=== PATIENT | female | born 1960 | race Caucasian/White ===

== ENCOUNTER → 2017-07-09 | Outpatient (CLI) | payer BC ==
[~2017-07-09] MED LIST: AMLO5TAB2 PO; ATEN100T88 PO; CARV25TA PO; LISI1TAB6 PO; SPIR25TA3 PO
--- NOTE | 2017-07-11 07:53 | Diagnostic Imaging Report ---
Bilateral screening mammogram 2D views with tomosynthesis The current study was also evaluated with a Computer Aided Detection (CAD) system. INDICATION: Screening. No current complaints stated on the questionnaire. COMPARISON: 06/19/16 FINDINGS: The breasts are composed of heterogeneously dense parenchyma which may decrease mammographic sensitivity. There is a biopsy clip noted in the upper outer aspect of the right breast. Allowing for technique and positional differences, no suspicious change is seen. IMPRESSION: Dense breasts with no definite change. ACR BI-RADS Category 2: Benign findings. Result letter will be mailed to the patient. Note: At least 10% of breast cancer is not imaged by mammography. Dictated by: Dictated on workstation # [id number]
== END ==
LOC: RAD 09:24
PROVIDERS: ATTEND Family Medicine
DX: Z12.31 Encounter for screening mammogram for malignant neoplasm of breast (principal)
CPT/HCPCS: 77067

== ENCOUNTER → 2018-07-28 | Outpatient (CLI) | payer BC ==
--- NOTE | 2018-07-28 12:37 | Diagnostic Imaging Report ---
INDICATION: Routine screening. COMPARISON: 07/09/2017 and 06/19/2016. TECHNIQUE: 2D and 3D bilateral screening mammography was performed with CAD. FINDINGS: Both breasts are heterogeneously dense, limiting the sensitivity of mammography. A biopsy clip in the upper outer right breast is again noted. No mass or malignant appearing microcalcifications are seen. The axillae are unremarkable. IMPRESSION: No mammographic features suspicious for malignancy are identified. ACR BI-RADS Category 2: Benign findings. Result letter will be mailed to the patient. Note: At least 10% of breast cancer is not imaged by mammography. Dictated by: Dictated on workstation # [id number]
== END ==
LOC: RAD 07:25
PROVIDERS: ATTEND Nurse Practitioner Family
DX: Z12.31 Encounter for screening mammogram for malignant neoplasm of breast (principal)
CPT/HCPCS: 77067

== ENCOUNTER → 2019-02-17 | Outpatient (CLI) | payer BC ==
--- NOTE | 2019-02-17 10:27 | Diagnostic Imaging Report ---
INDICATION: Hypertension. TECHNIQUE: Grayscale, color-flow, and duplex Doppler evaluation of the bilateral kidneys was performed. FINDINGS: The right kidney measures 10.0 x 3.7 x 5.1 cm and the left kidney measures 10.0 x 4.9 x 5.7 cm. The cortical thickness and echogenicity are normal. No calculi are seen. There is no hydronephrosis. The renal arterial evaluation demonstrates normal velocities bilaterally. No velocity elevation is seen. The waveforms are unremarkable. IMPRESSION: Unremarkable renal ultrasound with renal Doppler. No findings to suggest renal artery stenosis are identified. Dictated by: Dictated on workstation # [id number]
== END ==
LOC: RAD 08:16
PROVIDERS: ATTEND Nurse Practitioner Family
DX: I10 Essential (primary) hypertension (principal)
CPT/HCPCS: 76770; 93975

== ENCOUNTER → 2019-08-02 | Outpatient (CLI) | payer BC ==
--- NOTE | 2019-08-02 10:38 | Diagnostic Imaging Report ---
INDICATION: Screening The current study was also evaluated with a Computer Aided Detection (CAD) system. 3-D Tomographic imaging was also performed. Comparison made with prior examination of 07/28/2018, 07/09/2017 and 06/19/2016. FINDINGS: There are scattered fibroglandular densities bilaterally. There are benign type calcifications. There is no dominant mass, spiculated lesion or suspicious calcifications identified. Skin, nipples and axilla are unremarkable. IMPRESSION: Category 2 benign. ACR BI-RADS Category 2: Benign findings. Result letter will be mailed to the patient. Note: At least 10% of breast cancer is not imaged by mammography. Dictated by: Dictated on workstation # [id number]
== END ==
LOC: RAD 08:49
PROVIDERS: ATTEND Nurse Practitioner Family
DX: Z12.31 Encounter for screening mammogram for malignant neoplasm of breast (principal)
CPT/HCPCS: 77067

== ENCOUNTER → 2020-07-12 | Outpatient (CLI) | payer BC ==
--- NOTE | 2020-07-13 09:50 | NUR ---
Notified of Positive COVID test.
== END ==
LOC: LABNPT 08:34
PROVIDERS: ATTEND Family Medicine
DX: U07.1 COVID-19 (principal); J32.9 Chronic sinusitis, unspecified
CPT/HCPCS: 87635

== ENCOUNTER → 2020-08-03 | Outpatient (CLI) | payer BC ==
--- NOTE | 2020-08-03 09:50 | Diagnostic Imaging Report ---
INDICATION: Routine screening. Comparison is made with prior mammogram from 08/02/2019 and 07/28/2018. 2-D and 3-D bilateral screening mammography was performed with CAD. Scattered fibroglandular densities are identified bilaterally. The parenchymal pattern is stable. There are benign calcifications bilaterally. No mass or malignant appearing microcalcifications are seen. Axillae are unremarkable. IMPRESSION: BI-RADS Category 2 No mammographic features suspicious for malignancy are identified. ACR BI-RADS Category 2: Benign findings. Result letter will be mailed to the patient. Note: At least 10% of breast cancer is not imaged by mammography. Dictated by: Dictated on workstation # [id number]
== END ==
LOC: RAD 07:45
PROVIDERS: ATTEND Nurse Practitioner Family
DX: Z12.31 Encounter for screening mammogram for malignant neoplasm of breast (principal)
CPT/HCPCS: 77063; 77067

== ENCOUNTER → 2021-01-29 | Outpatient (CLI) | payer BC ==
[2021-01-29 10:34] LABS: BASOPHILS % (AUTO) 0 % (0-10); EOSINOPHILS # (AUTO) 0.1 10^3/uL (0.0-0.3); EOSINOPHILS % (AUTO) 2 % (0-10); HEMATOCRIT 37 % (35-52); LYMPHOCYTES # (AUTO) 0.8 X 10^3 (1.0-4.0); LYMPHOCYTES % (AUTO) 26 % (12-44); MEAN CORPUSCULAR HEMOGLOBIN 32 pg (25-34); MEAN CORPUSCULAR HGB CONC 35 g/dL (32-36); MEAN CORPUSCULAR VOLUME 91 fL (80-99); MEAN PLATELET VOLUME 9.5 fL (9.0-12.2); MONOCYTES # (AUTO) 0.3 X 10^3 (0.0-1.0); MONOCYTES % (AUTO) 12 % (0-12); NEUTROPHILS # (AUTO) 1.7 X 10^3 (1.8-7.8); NEUTROPHILS % (AUTO) 59 % (42-75); PLATELET COUNT 200 10^3/uL (130-400); WHITE BLOOD COUNT 2.9 10^3/uL (4.3-11.0)
== END ==
LOC: LAB 10:10
PROVIDERS: ATTEND Family Medicine
DX: D72.819 Decreased white blood cell count, unspecified (principal)
CPT/HCPCS: 36415; 85025

== ENCOUNTER → 2021-08-21 | Outpatient (CLI) | payer BC ==
--- NOTE | 2021-08-21 12:40 | Diagnostic Imaging Report ---
INDICATION: Routine screening. COMPARISON: 08/03/2020 and 08/02/2019. TECHNIQUE: 2D and 3D bilateral screening mammography was performed with CAD. FINDINGS: Both breasts are heterogeneously dense, limiting the sensitivity of mammography. A biopsy clip in the upper outer right breast is again noted. The overall parenchymal pattern is stable. No mass or malignant-appearing microcalcifications are seen. There are benign calcifications bilaterally. The axillae are unremarkable. IMPRESSION: No mammographic features suspicious for malignancy are identified. ACR BI-RADS Category 2: Benign findings. Result letter will be mailed to the patient. Note: At least 10% of breast cancer is not imaged by mammography. Dictated by: Dictated on workstation # [id number]
== END ==
LOC: RAD 08:30
PROVIDERS: ATTEND Family Medicine
DX: Z12.31 Encounter for screening mammogram for malignant neoplasm of breast (principal)
CPT/HCPCS: 77063; 77067

== ENCOUNTER 2022-01-21 11:38 | Emergency (ER) | payer BC ==
[~2022-01-21] VITALS: Ht 175 cm; Wt 79.0 kg
[2022-01-21 11:56] LABS: BASOPHILS % (AUTO) 0 % (0-10); EOSINOPHILS # (AUTO) 0.1 10^3/uL (0.0-0.3); EOSINOPHILS % (AUTO) 2 % (0-10); HEMATOCRIT 36 % (35-52); HEMOGLOBIN 12.8 g/dL (11.5-16.0); LYMPHOCYTES # (AUTO) 1.3 10^3/uL (1.0-4.0); LYMPHOCYTES % (AUTO) 37 % (12-44); MEAN CORPUSCULAR HEMOGLOBIN 32 pg (25-34); MEAN CORPUSCULAR HGB CONC 36 g/dL (32-36); MEAN CORPUSCULAR VOLUME 89 fL (80-99); MEAN PLATELET VOLUME 8.9 fL (9.0-12.2); MONOCYTES # (AUTO) 0.5 10^3/uL (0.0-1.0); MONOCYTES % (AUTO) 15 % (0-12); NEUTROPHILS # (AUTO) 1.6 10^3/uL (1.8-7.8); NEUTROPHILS % (AUTO) 45 % (42-75); PLATELET COUNT 250 10^3/uL (130-400); WHITE BLOOD COUNT 3.4 10^3/uL (4.3-11.0)
[2022-01-21 12:00] LABS: ALBUMIN 4.6 GM/DL (3.2-4.5)
[2022-01-21] MEDS ORDERED: ASPIRIN 81 MG CHEW (CHILDREN'S ASA) PO ONE (12:00)
[2022-01-21 12:01] LABS: CHLORIDE 90 MMOL/L (98-107); POTASSIUM 3.5 MMOL/L (3.6-5.0); SODIUM 128 MMOL/L (135-145)
[2022-01-21 12:02] LABS: CALCIUM 9.5 MG/DL (8.5-10.1)
[2022-01-21 12:03] LABS: GLUCOSE 113 MG/DL (70-105); TOTAL PROTEIN 7.5 GM/DL (6.4-8.2)
[2022-01-21 12:04] LABS: CARBON DIOXIDE 22 MMOL/L (21-32)
[2022-01-21 12:05] LABS: BILIRUBIN,TOTAL 1.1 MG/DL (0.1-1.0)
[2022-01-21 12:06] LABS: ALKALINE PHOSPHATASE 87 U/L (40-136)
[2022-01-21 12:07] LABS: CREATININE SERUM 0.75 MG/DL (0.60-1.30); GFR ESTIMATED 91
[2022-01-21 12:08] LABS: BUN/CREATININE RATIO 13
[2022-01-21 12:10] LABS: ALANINE AMINOTRANSFERASE 36 U/L (0-55); MAGNESIUM 1.6 MG/DL (1.6-2.4)
--- NOTE | 2022-01-21 12:17 | ED Chest Pain ---
General Chief Complaint: Chest Pain Stated Complaint: CP, SWEATS, N/V Source: patient Exam Limitations: no limitations History of Present Illness Date Seen by Provider: January 21, 2022 Time Seen by Provider: 11:50 Initial Comments To ER with chest pain, sweats, nausea vomiting. While she was driving at about 1130 today she developed a pressure sensation in the mid chest that she describes as if food was going down sideways. She had just eaten a peanut butter cracker prior to this about 5 minutes prior but does not think that was the cause. In association with that pain she had diaphoresis and nausea. She feels a little lightheaded currently but the chest pain has resolved. She is a non-smoker. Not diabetic. She does have hypertension. No personal history of heart disease. Does not have hyperlipidemia. Timing/Duration: changing over time Severity/Quality: pressure Location: central Radiation: no radiation Activities at Onset: none ASA po MEDICAL RESEARCH TECH: No NTG SL MEDICAL RESEARCH TECH: No Associated Symptoms: nausea/vomiting Allergies and Home Medications Allergies Coded Allergies: No Known Drug Allergies (Unverified , 07/25/11) Patient Home Medication List Home Medication List Reviewed: Yes Amlodipine Besylate (Amlodipine Besylate) 5 Mg Tablet, 5 MG PO DAILY, (Reported) Entered as Reported by: LEIDY JONES on 05/12/13814 Carvedilol (Carvedilol) 25 Mg Tablet, 1 EACH PO BID, (Reported) Entered as Reported by: LEIDY JONES on 05/12/13814 Spironolactone (Spironolactone) 25 Mg Tablet, 25 MG PO BID, (Reported) Entered as Reported by: LEIDY JONES on 05/12/13814 Review of Systems Review of Systems Constitutional: see HPI EENTM: No Symptoms Reported Respiratory: No Symptoms Reported Cardiovascular: No Symptoms Reported Gastrointestinal: No Symptoms Reported Genitourinary: No Symptoms Reported Musculoskeletal: no symptoms reported Skin: no symptoms reported Psychiatric/Neurological: No Symptoms Reported Endocrine: No Symptoms Reported Hematologic/Lymphatic: No Symptoms Reported Past Xrfslyz-Pxsrze-Ulgleu Hx Patient Social History Tobacco Use?: No Use of E-Cig and/or Vaping dev: No Substance use?: No Alcohol Use?: Yes Pt feels they are or have been: No Physical Exam Vital Signs Vital Signs - First Documented 01/21/22 11:42 Temp 36.2 Pulse 58 Resp 20 Pulse Ox 99 O2 Delivery Room Air Capillary Refill : Height, Weight, BMI Height: '" Weight: 172lbs. oz. 78.169781jp; BMI Method: General Appearance: No Apparent Distress, WD/WN Neck: Full Range of Motion, Normal Inspection Respiratory: No Accessory Muscle Use, No Respiratory Distress Cardiovascular: Regular Rate, Rhythm, Normal Peripheral Pulses Gastrointestinal: Normal Bowel Sounds, Non Tender, Soft Extremity: Normal Capillary Refill, Normal Inspection Neurologic/Psychiatric: Alert, Oriented x3 Skin: Normal Color, Warm/Dry Progress/Results/Core Measures Results/Orders Lab Results Laboratory Tests Test 01/21/22 11:49 01/21/22 14:06 Range/Units White Blood Count 3.4 L 4.3-11.0 10^3/uL Red Blood Count 4.02 3.80-5.11 10^6/uL Hemoglobin 12.8 11.5-16.0 g/dL Hematocrit 36 35-52 % Mean Corpuscular Volume 89 80-99 fL Mean Corpuscular Hemoglobin 32 25-34 pg Mean Corpuscular Hemoglobin Concent 36 32-36 g/dL Red Cell Distribution Width 11.2 10.0-14.5 % Platelet Count 250 130-400 10^3/uL Mean Platelet Volume 8.9 L 9.0-12.2 fL Immature Granulocyte % (Auto) 0 % Neutrophils (%) (Auto) 45 42-75 % Lymphocytes (%) (Auto) 37 12-44 % Monocytes (%) (Auto) 15 H 0-12 % Eosinophils (%) (Auto) 2 0-10 % Basophils (%) (Auto) 0 0-10 % Neutrophils # (Auto) 1.6 L 1.8-7.8 10^3/uL Lymphocytes # (Auto) 1.3 1.0-4.0 10^3/uL Monocytes # (Auto) 0.5 0.0-1.0 10^3/uL Eosinophils # (Auto) 0.1 0.0-0.3 10^3/uL Basophils # (Auto) 0.0 0.0-0.1 10^3/uL Immature Granulocyte # (Auto) 0.0 0.0-0.1 10^3/uL Prothrombin Time 13.3 12.2-14.7 SEC INR Comment 1.0 0.8-1.4 Activated Partial Thromboplast Time 36 H 24-35 SEC Sodium Level 128 L 135-145 MMOL/L Potassium Level 3.5 L 3.6-5.0 MMOL/L Chloride Level 90 L 98-107 MMOL/L Carbon Dioxide Level 22 21-32 MMOL/L Anion Gap 16 H 5-14 MMOL/L Blood Urea Nitrogen 10 7-18 MG/DL Creatinine 0.75 0.60-1.30 MG/DL Estimat Glomerular Filtration Rate 91 BUN/Creatinine Ratio 13 Glucose Level 113 H 70-105 MG/DL Calcium Level 9.5 8.5-10.1 MG/DL Corrected Calcium 8.5-10.1 MG/DL Magnesium Level 1.6 1.6-2.4 MG/DL Total Bilirubin 1.1 H 0.1-1.0 MG/DL Aspartate Amino Transf (AST/SGOT) 38 H 5-34 U/L Alanine Aminotransferase (ALT/SGPT) 36 0-55 U/L Alkaline Phosphatase 87 40-136 U/L Myoglobin 53.8 10.0-92.0 NG/ML Troponin I < 0.028 < 0.028 <0.028 NG/ML B-Type Natriuretic Peptide 70.2 <100.0 PG/ML Total Protein 7.5 6.4-8.2 GM/DL Albumin 4.6 H 3.2-4.5 GM/DL My Orders Orders - AMBAR MAN CONVEYANCER Cbc With Automated Diff (01/21/22 11:46) Magnesium (01/21/22 11:46) Chest 1 View, Ap/Pa Only (01/21/22 11:46) Ekg Tracing (01/21/22 11:46) Comprehensive Metabolic Panel (01/21/22 11:46) Myoglobin Serum (01/21/22 11:46) Protime With Inr (01/21/22 11:46) Partial Thromboplastin Time (01/21/22 11:46) O2 (01/21/22 11:46) Monitor-Rhythm Ecg Trace Only (01/21/22 11:46) Lipid Panel (01/22/22 06:00) Ed Iv/Invasive Line Start (01/21/22 11:46) Bnp [place] (01/21/22 11:46) Troponin I [place] (01/21/22 11:46) Aspirin Chewable Tablet (Baby Aspirin Ch (01/21/22 12:00) Troponin I [place] (01/21/22 13:39) Medications Given in ED Current Medications Medications Dose Ordered Sig/Reggie Route Start Time Stop Time Status Last Admin Dose Admin Aspirin 324 mg ONCE ONCE PO 01/21/22 12:00 01/21/22 12:01 DC 01/21/22 11:56 324 MG Vital Signs/I&O 01/21/22 11:42 Temp 36.2 Pulse 58 Resp 20 B/P (MAP) Pulse Ox 99 O2 Delivery Room Air Departure Communication (Admissions) NAME: KATHE RUIZ [facility] REC#: [id number] PT STATUS: REG ER : 1960 PHYSICIAN: AMBAR MAN APRN ADMIT DATE: 01/21/22/ER Draft Date of Exam:01/21/22 CHEST 1 VIEW, AP/PA ONLY INDICATION: Chest pain. Time of Exam: 12:20 PM No prior studies are available for comparison. Finding: The heart size is normal. The pulmonary vascularity is unremarkable. The lungs are clear. No infiltrate, effusion or pneumothorax is detected. Impression: No acute cardiopulmonary process is detected. Dictated on workstation # [id number] Dict: 01/21/22 1218 Trans: 01/21/22 1219 [facility] [id number] Interpreted by: DOUGLAS MEDRANO MD Electronically signed by: EKG shows sinus rhythm with PAC. No ST segment change. Impression Primary Impression: Chest pain Disposition: HOME, SELF-CARE Condition: Stable Departure-Patient Inst. Decision time for Depature: 14:36 Referrals: MONICA HERNANDEZ MD (PCP/Family) Primary Care Physician Patient Instructions: Chest Pain (DC) Add. Discharge Instructions: 1. Follow-up with Dr. HERNANDEZ. Call tomorrow to make an appointment to be seen. Return to ER for any worsening symptoms. All discharge instructions reviewed with patient and/or family. Voiced understanding. AMBAR MAN APRN January 21, 2022 12:17
[2022-01-21 12:57] LABS: PROTHROMBIN TIME PATIENT 13.3 SEC (12.2-14.7)
[2022-01-21 14:43] VITALS: BP 158/77
== END 2022-01-21 14:43 | disposition home or self-care (01) ==
LOC: EDUNIT# 11:38 → ER 11:40
DX: R07.89 Other chest pain (principal)
CPT/HCPCS: 36415; 71045; 80053; 83735; 83874; 83880; 84484; 85025; 85610; 85730; 93005; 93041

== ENCOUNTER → 2022-01-29 | Outpatient (CLI) | payer BC ==
--- NOTE | 2022-01-29 10:31 | Diagnostic Imaging Report ---
INDICATION: Stepped off lawnmower wrong with pain to lateral foot. FINDINGS: 3 views. There is an oblique fracture of the distal shaft of the 5th metatarsal. There is mild foreshortening. The MP joints and the metatarsal tarsal joint appear in good alignment. No other fractures are seen. IMPRESSION: Oblique fracture distal shaft of the 5th metatarsal with minimal foreshortening. Dictated by: Dictated on workstation # [id number]
== END ==
LOC: RAD 09:06
PROVIDERS: ATTEND Nurse Practitioner Family
DX: S92.351A Displaced fracture of fifth metatarsal bone, right foot, initial encounter for closed fracture (principal); X58.XXXA Exposure to other specified factors, initial encounter
CPT/HCPCS: 73630

== ENCOUNTER → 2022-02-12 | Outpatient (CLI) | payer BC | LOC: CARD 08:30 | PROVIDERS: ATTEND Internal Medicine Cardiovascular Disease | DX: I11.9 Hypertensive heart disease without heart failure (principal); I35.0 Nonrheumatic aortic (valve) stenosis; I25.10 Atherosclerotic heart disease of native coronary artery without angina pectoris | CPT/HCPCS: 93306 ==

== ENCOUNTER → 2022-03-13 | Outpatient (CLI) | payer BC ==
[~2022-03-13] MED LIST changes: +CATHETER FLUSH 10 ML SYR IVP PRN; +REGADENOSON 0.4 MG/5 ML SYR (LEXISCAN) IV ONE
[2022-03-13 08:52] VITALS: BP 201/87
--- NOTE | 2022-03-14 11:07 | Cardiology Stress Test Report ---
Stress Test Report Date of Procedure/Referring: Date of Procedure: Mar 13, 2022 PCP Monica Cabral MD Admitting Physician Admitting Physician: Attending Physician: Carmelita Hutchison MD Indications: CP Baseline Heart Rate: 64 Baseline Blood Pressure: Blood Pressure Systolic: 201 Blood Pressure Diastolic: 87 Baseline Vitals Vital Signs Date Time Temp Pulse Resp B/P (MAP) Pulse Ox O2 Delivery O2 Flow Rate FiO2 03/13/22 08:52 68 201/87 (125) 98 Baseline EKG: Baseline EKG: NSR Summary After explaining the procedure to the patient, she signed a consent and then brought to the stress nuclear laboratory. Patient received 0.4 mg Lexiscan for stress test, ECG, heart rate and blood pressure were monitored continuously. Resting and stress dose of radio tracer were injected, imaging was acquired and reviewed in short axis, horizontal long axis and vertical long axis views. TID: 1.13 SSS: 0 SDS: 0 EF: 73 1. Patient tolerated Lexiscan well 2. Baseline hypertension persisted during test 3. Typical female pattern with no significant ischemia or infarction on SPECT 4. Normal left ventricular size, EF 73% Copy Copies To 1: MONICA CABRAL MD, BASHAR J MD Mar 14, 2022 11:07
== END ==
LOC: CARD 07:45
PROVIDERS: ATTEND Internal Medicine Cardiovascular Disease
DX: I25.10 Atherosclerotic heart disease of native coronary artery without angina pectoris (principal); I10 Essential (primary) hypertension
CPT/HCPCS: 78452; 93017; A9502

== ENCOUNTER → 2022-08-22 | Outpatient (CLI) | payer BC ==
[~2022-08-22] MED LIST changes: -CATHETER FLUSH 10 ML SYR IVP PRN; -REGADENOSON 0.4 MG/5 ML SYR (LEXISCAN) IV ONE
--- NOTE | 2022-08-22 13:03 | Diagnostic Imaging Report ---
INDICATION: Routine screening. Comparison is made with prior mammogram 08/21/2021 and 08/03/2020. 2-D and 3-D bilateral screening mammography was performed with CAD. CAD is utilized. The current study was also evaluated with a Computer Aided Detection (CAD) system. Both breasts are heterogeneously dense, limiting the sensitivity of mammography. The parenchymal pattern is stable. No mass or malignant-appearing microcalcifications are seen. Axillae are unremarkable. Biopsy clip upper outer right breast is again noted. Impression: BI-RADS Category 2 No mammographic features suspicious for malignancy are identified. ACR BI-RADS Category 2: Benign findings. Result letter will be mailed to the patient. Note: At least 10% of breast cancer is not imaged by mammography. Dictated by: Dictated on workstation # [id number]
== END ==
LOC: RAD 07:41
PROVIDERS: ATTEND Nurse Practitioner Family
DX: Z12.31 Encounter for screening mammogram for malignant neoplasm of breast (principal)
CPT/HCPCS: 77063; 77067